=== PATIENT | female | born 1960 | race Caucasian/White ===

== ENCOUNTER 2018-09-12 13:55 | Emergency (ER) | payer OTHER ==
[~2018-09-12] VITALS: Ht 157.5 cm; Wt 79.4 kg
[2018-09-12 14:02] VITALS: BP 155/87
[2018-09-12] MEDS ORDERED: MURI-LUBE MINERA2 ML TOP (14:04)
[2018-09-12] MEDS ORDERED: PREDNISONE 10 M10 MG PO (14:05)
[2018-09-12] MEDS ORDERED: CLINDAMYCIN HC300 MG PO (14:05)
== END 2018-09-12 14:31 | disposition home or self-care (01) ==
LOC: ER 13:55
DX: T63.331A Toxic effect of venom of brown recluse spider, accidental (unintentional), initial encounter (principal); Y92.89 Other specified places as the place of occurrence of the external cause